=== PATIENT | male | born 1980 | race Caucasian/White ===

== ENCOUNTER 2018-08-28 08:00 | Day surgery (SDC) | payer MEDICAID, MEDICARE ==
[~2018-08-28 08:00] MED LIST: ACETAMINOPHEN 1,000 MG/100 ML BTL IV ONE
[2018-08-28] MEDS ORDERED: DEXAMETHASONE 4 MG/ML 1ML VIAL IVP ONE (08:01)
[2018-08-28] MEDS ORDERED: SEVOFLURANE 250 ML INH ONE (08:01)
[2018-08-28] MEDS ORDERED: ONDANSETRON HCL IV 4 MG/2 ML VIAL IVP ONE (08:01)
[2018-08-28] MEDS ORDERED: FENTANYL PF 100MCG/2ML VIAL IV ONE (08:01)
[2018-08-28] MEDS ORDERED: BUPIVACAINE 0.25% W/EPI MPF 30ML VIAL IVP ONE (08:01)
[2018-08-28] MEDS ORDERED: PROPOFOL 10 MG/ML VIAL IV ONE (08:01)
[2018-08-28] MEDS ORDERED: LIDOCAINE 2% MDV (20MG/ML) 20ML VIAL IV ONE (08:01)
--- NOTE | 2018-08-28 14:00 | Operative Note ---
DATE OF SURGERY: 08/28/2018 Surgeon: Wayne Suazo DO PREOPERATIVE DIAGNOSIS: Malfunctioning peritoneal dialysis catheter. POSTOPERATIVE DIAGNOSIS: Malfunctioning peritoneal dialysis catheter. OPERATION: Removable PD catheter. Indication: The patient is a 29-year-old male who has undergone at least 2 PD catheter placements as well as 2 revisions. He seems to be not tolerating peritoneal dialysis again. Therefore, after speaking with Nephrology, the discussion was to remove the catheter. Thereafter, consent was signed and questions answered. PROCEDURE: The patient was taken to the operating room and placed in a supine position. General anesthesia was administered per the department of anesthesia. The patient's abdomen was prepped and draped in the usual fashion. Through the exit site, the proximal cuff was then freed up to the skin. Additional 2 cm incision made inferior with the second cuff was down to the peritoneum. This was freed up. The catheter was removed. A pursestring stitch was placed at the level of the peritoneum and additional stitch at the level of the fascia. This wound was then irrigated and closed with 3-0 Vicryl. The patient tolerated procedure well. CC: Abdifatah [email or web address]
== END 2018-08-28 11:50 | disposition home or self-care (01) ==
LOC: SUR 08:00
PROVIDERS: ATTEND Surgery
DX: T85.611A Breakdown (mechanical) of intraperitoneal dialysis catheter, initial encounter (principal); I10 Essential (primary) hypertension; R60.9 Edema, unspecified; Z79.01 Long term (current) use of anticoagulants
CPT/HCPCS: J2405